=== PATIENT | male | born 1970 | race Hispanic/Latino ===

== ENCOUNTER 2016-08-09 15:45 | Emergency (ER) | payer OTHER ==
[~2016-08-09] VITALS: Ht 175.3 cm; Wt 79.4 kg
[2016-08-09 15:46] VITALS: BP 149/79
[2016-08-09] MEDS ORDERED: DIBU0.5O TOP (16:39)
[2016-08-09] MEDS ORDERED: PROCAER4 PR (16:39)
== END 2016-08-09 17:30 | disposition home or self-care (01) ==
LOC: M ED 16:27
DX: K64.8 Other hemorrhoids (principal); Z91.030 Bee allergy status

== ENCOUNTER → 2016-08-31 | Outpatient (REF) | payer OTHER ==
[~2016-08-31] MED LIST: DIBU0.5O TOP; PROCAER4 PR
== END ==
LOC: M SMT 08:30
PROVIDERS: ATTEND Urology
DX: Z30.2 Encounter for sterilization (principal)

== ENCOUNTER → 2016-11-24 | Outpatient (REF) | payer OTHER ==
[2016-11-24 10:39] LABS: IMMMOTILE SPERM CENTRIFUGED ABSENT (ABSENT); IMMOTILE SPERM ABSENT (ABSENT); MOTILE SPERM ABSENT (ABSENT); MOTILE SPERM CENTRIFUGED ABSENT (ABSENT)
== END ==
LOC: M SMT 09:20
PROVIDERS: ATTEND Urology
DX: Z30.2 Encounter for sterilization (principal)